=== PATIENT | female | born 1990 | race Caucasian/White ===

== ENCOUNTER 2018-11-04 14:08 | Day surgery (SDC) | payer OTHER ==
[~2018-11-04] VITALS: Ht 152.4 cm; Wt 81.7 kg
--- NOTE | ~2018-11-04 | OR ---
[facility] [address] [place] [place], [place] [address] Draft DATE OF OPERATION: 11/04/2018 SURGEON: Silvia Lim MD PREOPERATIVE DIAGNOSIS: Missed . POSTOPERATIVE DIAGNOSIS: Missed . PROCEDURE: Suction dilation and curettage. ANESTHESIA: General LMA. ESTIMATED BLOOD LOSS: 100 mL. DRAINS: None. INDICATIONS AND FINDINGS: The patient is a 28-year-old female, 2, para 1, who is 15 and 6/7th weeks by earlier ultrasound and was found to have a missed AB under ultrasound today. She had some moderate bleeding today and called. The fetus was approximately 7 week's size as it was starting to contract. At the time of surgery, exam under anesthesia revealed the uterus was approximately 14 week's size. The cervix was closed. There was a large amount of tissue within the uterus. DESCRIPTION OF PROCEDURE: The patient was prepped and draped in the dorsal lithotomy position. An open-sided speculum was placed. The anterior lip of the cervix was visualized and grasped with a single-tooth tenaculum. The endocervical canal was then dilated to a #12 dilator. A #12 curved suction curette was introduced and some tissue was removed, although it was very difficult to get adequate suction from the machine. Because of this, the suction curette was removed and polyp forceps were introduced and a large amount of tissue was removed in that manner. Following this, the suction curette was reintroduced and some tissue was removed that way. Following this, sharp curettage was done with removal of even more tissue. At this point, the cavity felt more clean and contracted. The PATIENT NAME: DEWAYNE MCKEON OPERATIVE REPORT DATE OF : 89 REPORT #: [id number] PHYSICIAN: SILVIA LIM MD PCP: LUIS MANUEL RAO MD REPORT IS CONFIDENTIAL AND NOT TO BE RELEASED WITHOUT AUTHORIZATION [facility] [address] [place], [place] [address] Draft suction curettage was repeated as was sharp, and at that point, it was felt that the procedure was complete. At this point, the instruments were removed and the cervix visualized. There was some bleeding from the posterior aspect of the cervix, were kind of a raw area on the cervix. Two [id number] sutures were placed with good hemostasis noted. All sponge and needle counts were correct. She tolerated the procedure well and was taken to the recovery room in good condition. Silvia Lim MD PJW/MODL /[id number] cc: Luis Manuel Rao MD Copies: LUIS MANUEL RAO MD ~ PATIENT NAME: DEWAYNE MCKEON OPERATIVE REPORT DATE OF : 89 REPORT #: [id number] PHYSICIAN: SILVIA LIM MD PCP: LUIS MANUEL RAO MD REPORT IS CONFIDENTIAL AND NOT TO BE RELEASED WITHOUT AUTHORIZATION
[~2018-11-04 14:08] MED LIST: ACETAMINOPHEN325 M1 PO; AZITHROMYCIN500 MG PO; ZOLPIDEM TARTRAT5 MG PO
[2018-11-04] MEDS ORDERED: PRENATAL 19 TA1 EAC1 PO (14:26)
--- NOTE | 2018-11-04 17:07 | NUR ---
FAMILY @ BEDSIDE. CALL LIGHT W/IN REACH. ICED WATER GIVEN. PATIENT DRINKING WATER AND TOLERATING THAT WELL.
--- NOTE | 2018-11-04 17:12 | NUR ---
11/04/18 1712 Nidia Modi 1638 PT ARRIVED IN PACU NON-RESPONSIVE TO VERBAL/TACTILE STIMULI WITH ORAL AIRWAY IN PLACE. CHIN LIFT DONE TO KEEP AIRWAY OPEN. 1643 PT AWAKE. ORAL AIRWAY REMOVED. C/O SORE THROAT. 1650 OXYGEN REMOVED. SATS 99% ON RA. TALKING TO DR AT BEDSIDE. 165 SIPPING ON WATER. ASKING TO SEE FAMILY. VERY TEARFUL. 1700 TO DS TO SEE FAMILY. REPORT GIVEN TO RN.
[2018-11-04] MEDS ORDERED: MOTRIN IB200 MG PO (17:34)
[2018-11-04] MEDS ORDERED: DOXYCYCLINE HY100 MG PO (17:34)
[2018-11-04] MEDS ORDERED: NORCO 5-325 TA1 EACH PO (17:34)
--- NOTE | 2018-11-04 17:49 | NUR ---
PATIENT UP TO BATHROOM W/RN AND MOTHER STANDBY. PATIENT'S MOTHER STAYS PRESENT IN THE BATHROOM WITH THE PATIENT PER PATIENT'S REQUEST. PATIENT VOIDS 75 ML OF BLOODY URINE AND CHANGES HER [place]NEE PAD FOR A MODERATE AMOUNT OF BLOODY DISCHARGE AND AMBULATES BACK TO BED. SOUP AND PUDDING IS GIVEN. MORE ICED WATER GIVEN. PATIENT'S FAMILY REMAINS AT THE BEDSIDE.
== END 2018-11-04 18:10 | disposition home or self-care (01) ==
LOC: OPS 14:08 → DS 14:08 → OPS 16:00 → DS 16:00 → OPS 18:10
PROVIDERS: Obstetrics & Gynecology
PROC: 10D17ZZ Extraction of Products of Conception, Retained, Via Natural or Artificial Opening (ICD-10-PCS; principal; 2018-11-04 16:00)
DX: O02.1 Missed abortion (principal); O99.212 Obesity complicating pregnancy, second trimester; E66.9 Obesity, unspecified; Z87.891 Personal history of nicotine dependence; Z68.35 Body mass index [BMI] 35.0-35.9, adult
CPT/HCPCS: 00952; 36415; 85025; J1100; J1885; J2250; J2405; J2590; J2704; J2765; J3010; J7120

== ENCOUNTER 2020-07-18 07:56 | Inpatient (IN) | payer OTHER ==
[~2020-07-18] VITALS: Ht 152.4 cm; Wt 90.7 kg
[~2020-07-18 07:56] MED LIST changes: +DOXYCYCLINE HY100 MG PO; +MOTRIN IB200 MG PO; +NORCO 5-325 TA1 EACH PO; +PRENATAL 19 TA1 EAC1 PO
--- NOTE | 2020-07-18 14:28 | PR ---
[facility] [address] [place] [address] Signed Progress Notes IP Datetime Report Generated by CPN: 07/18/2020 14:28 PROGRESS NOTES: [id number] Other Impressions: slow progress Procedures: Artificial ROM; Sterile Vag Exam Plan: Continue Present Management VITAL SIGNS: [id number] Vital Signs: Reviewed VS Notable Details: mild elevation EXAM: [id number] Dilatation: 4.0 Effacement: 80 Station: -2 Contractions: q 2 to 3 min MEMBRANES: [id number] Comments: Slow progress. Will proceed with AROM as expect this will increase strength and frequency of contractions. FETUS A: [id number] FHR Baseline: 140 Variability: Moderate 6-25bpm Accelerations: 15X15 Decelerations: None FHR Category: Category I Presentation: Vertex Comments on Fetus A: No evidence of metabolic acidosis FETUS B: [id number] Signing Physician: Silvia Lim MD Copies: ~ *Electronically Signed* 07/18/20 1428 SILVIA LIM MD PATIENT NAME: DEWAYNE MCKEON PROGRESS NOTE DATE OF : 89 PHYSICIAN: SILVIA LIM MD RPT #: [id number] REPORT IS CONFIDENTIAL AND NOT TO BE RELEASED WITHOUT AUTHORIZATION
--- NOTE | 2020-07-19 10:53 | PR ---
[facility] [address] [facility] [place], [place] [address] Signed PP Progress Notes Datetime Report Generated by CPN: 07/19/2020 10:53 SUBJECTIVE: [id number] Pain: Within Normal Limits Vital Signs: [id number] Vital Signs: Reviewed; Within Normal Limits EXAM: Ongoing Cardiovascular: Not Done Respiratory: Not Done Abdomen/Uterus: Abnormal Lochia: Normal Vulva/Perineum: Not Done Breasts: Not Done CVA Tenderness: Not Done Extremities: Normal Incision: Not Applicable Progress: Normal Exam Comments: Fundus firm, NT @ U-1. H/H 9.6/27.9, WBC 14.8, plat 158k IMPRESSION/PLAN/PROCEDURES: [id number] Impression: Normal Progression Plan: Discharge Progress Notes: Doing well. She is ready for discharge. Signing Physician: Silvia Lim MD Copies: ~ *Electronically Signed* 07/19/20 1053 SILVIA LIM MD PATIENT NAME: DEWAYNE MCKEON PROGRESS NOTE DATE OF : [birth year] PHYSICIAN: SILVIA LIM MD RPT #: [id number] REPORT IS CONFIDENTIAL AND NOT TO BE RELEASED WITHOUT AUTHORIZATION
== END 2020-07-19 16:25 | disposition home or self-care (01) | DRG 807 ==
LOC: FBCO 07:56 → FBC 09:30
PROVIDERS: ADMIT Obstetrics & Gynecology; ATTEND Obstetrics & Gynecology
PROC: 10E0XZZ Delivery of Products of Conception, External Approach (ICD-10-PCS; principal; 2020-07-18)
PROC: 0KQM0ZZ Repair Perineum Muscle, Open Approach (ICD-10-PCS; 2020-07-18)
PROC: 10907ZC Drainage of Amniotic Fluid, Therapeutic from Products of Conception, Via Natural or Artificial Opening (ICD-10-PCS; 2020-07-18)
DX: O99.824 Streptococcus B carrier state complicating childbirth (principal); Z37.0 Single live birth; Z3A.39 39 weeks gestation of pregnancy; O70.1 Second degree perineal laceration during delivery; O99.214 Obesity complicating childbirth; E66.9 Obesity, unspecified; Z87.891 Personal history of nicotine dependence; Z86.19 Personal history of other infectious and parasitic diseases
CPT/HCPCS: 36415; 85027; A9270; J2540; J2590; J7121; U0003

== ENCOUNTER 2022-01-21 18:28 | Emergency (ER) | payer OTHER ==
[~2022-01-21] VITALS: Ht 152.4 cm; Wt 90.7 kg
[2022-01-21] MEDS ORDERED: CEPHALEXIN500 MG PO (22:20)
[2022-01-21] MEDS ORDERED: POTASSIUM CHLO10 MEQ PO (22:20)
== END 2022-01-21 23:23 | disposition home or self-care (01) ==
LOC: ED 18:28
DX: F45.8 Other somatoform disorders (principal); E87.6 Hypokalemia; N39.0 Urinary tract infection, site not specified; R03.0 Elevated blood-pressure reading, without diagnosis of hypertension; Z87.891 Personal history of nicotine dependence
CPT/HCPCS: 36415; 80053; 81001; 83605; 84703; 85025; A9270; J0696; J7030